=== PATIENT | male | born 1970 | race Caucasian/White ===

== ENCOUNTER 2016-07-22 14:07 | Emergency (ER) | payer BC ==
[2016-07-22] MEDS ORDERED: ONDANSETRON 4 MG/2 ML VIAL IVP ONE (14:24)
[2016-07-22] MEDS ORDERED: NS 1,000 ML IV ONE (14:26)
--- NOTE | 2016-07-22 14:26 | EDPHY ---
H & P Stated Complaint: ABBEY LOWER ABD PAIN Source: Patient Exam Limitations: No limitations - Personal History Current Tetanus Diphtheria and Acellular Pertussis (TDAP): Yes - Medical/Surgical History Other PMH: DIVERTICULITIS, LAST EPISODE 01/21 - Social History Smoking Status: Never smoked HPI/ROS: CHIEF COMPLAINT: Abdominal pain HISTORY OF PRESENT ILLNESS: Patient complains of 1 day history of bilateral lower quadrant abdominal pain. This started while riding his bike this morning. It is currently 9/10. Was milder this morning. He felt a sudden urge to have a bowel movement. He was unable to make it to the restroom and had a bowel movement outside. There was no blood in it. Pain has worsened throughout the day. It is associated with some distension. No fever or chills. No urinary complaints. No trauma or injury. Does have a history of diverticulitis x3 in the past. No perforations. No surgical interventions. Colonoscopy within the past 6 months without significant findings of the diverticula. No other associated complaints or modifying factors. PREVIOUS ABDOMINAL SURGERIES/DIAGNOSES: Diverticulitis recurrent without partial colectomy. No perforations REVIEW OF SYSTEMS: Ten systems reviewed and are negative unless otherwise noted in the HPI EXAMINATION: General Appearance: Alert, no distress Head: normocephalic, atraumatic Eyes: Pupils equal and round, no conjunctival pallor or injection ENT, Mouth: Mucous membranes moist. Uvula midline. Airway widely patent. Neck: Normal inspection, supple, non-tender Respiratory: Lungs are clear to auscultation. No wheezing, rhonchi or crackles. Cardiovascular: Regular rate and rhythm. No murmur. Pulses intact distally. Gastrointestinal: Abdomen is soft. There is moderate tenderness in both lower quadrants. Mild distention. No tympany. No rigidity. No guarding. No CVA tenderness. Nonacute abdomen. Back: non-tender, no bony abnormalities Neurological: GCS 15. A&O, nonfocal, normal gait Skin: Warm and dry, no rash Extremities: Nontender, no pedal edema Psychiatric: Mood and affect normal DIFFERENTIAL DIAGNOSES: Including but not limited to diverticulitis, colitis, perforated diverticulitis , peritoneal abscess, ureteral stones, nephrolithiasis, appendicitis, cystitis MDM: 2:25 p.m. Lower abdominal pain with mild distention and moderate tenderness. Given his history of diverticulitis I have ordered a CT scan of the abdomen and pelvis. His vital signs are stable. He does not meet SIRS criteria. IV fluid, IV pain medication and antiemetics have been ordered. 2:50 p.m. Notified by RN that the 1st dose of pain medication did not improve the patient' s symptoms. I have ordered 1 mg of Dilaudid. 3:30 p.m. Laboratory studies are all within normal limits. CT scan has been performed and I am awaiting the interpretation. 3:[address] Hernandez. [address] scan of the abdomen pelvis does reveal acute sigmoid diverticulitis. No perforation. No abscess. There is incidental note of renal and liver cysts of uncertain etiology. Recommends MR follow-up outpatient basis. 4:00 p.m. I have followed up with the patient regarding his findings. I informed her of the normal laboratory studies. I informed him of the uncomplicated diverticulitis. I offered admission for pain control and IV antibiotics. He has declined. He would like to be discharged home. I do feel that he is stable for discharge home and likely will do well on outpatient basis. We discussed the possibility of failure of outpatient therapy and he is comfortable seeing this risk. I will provide prescription for Levaquin, Flagyl , Zofran and Percocet for pain as needed. He is to return here for worsening pain, fever, chills, vomiting. He is to contact his primary care physician and GI physician next week for further care and for follow up on the renal and hepatic cysts., as well as general surgeon to discuss possible surgical evaluation of his recurrent diverticulitis. He is discharged home stable condition. ED Precautions: Worsening pain. Fever. Bloody stools. Bloody emesis. Constipation or diarrhea. SUPERVISION: Patient was evaluated in conjunction with the supervising physician. Please see their note for details. (Yovany Adame) Constitutional: Initial Vital Signs Temperature (C) 36.3 C 07/22/16 14:10 Heart Rate 73 07/22/16 14:10 Respiratory Rate 18 07/22/16 14:10 Blood Pressure 137/83 H 07/22/16 14:10 O2 Sat (%) 98 07/22/16 14:10 O2 Delivery Mode Room Air Allergies/Adverse Reactions: No Known Allergies Allergy (Unverified 07/22/16 14:08) Home Medications: Medication Instructions Recorded Ondansetron Odt [Zofran Odt 4 mg 4 mg PO Q6 PRN #12 tab 07/22/16 (*)] levOFLOXACIN [Levaquin] 500 mg PO DAILY #10 tablet 07/22/16 metroNIDAZOLE [Flagyl 500 mg (*)] 500 mg PO BID #30 tab 07/22/16 oxyCODONE HCL/ACETAMINOPHEN 1 each PO Q4-6PRN PRN #20 tablet 07/22/16 [Percocet 5-325 mg Tablet] Medical Decision Making - Diagnostics Imaging Results: Imaging Impressions Abdomen CT 07/22/16 14:26 Impression: 1. Sigmoid diverticulitis without evidence of abscess or perforation. 2. Indeterminate hypodensities in the liver and kidneys. If these have not been previously assessed on outside studies, recommend MR abdomen with contrast. 3. Additional findings as above. Findings discussed with Yovany Adame PA-C, 07/22/2016, at 1542 hours. Other Provider: I evaluated the patient independently. He presents to with abdominal pain from recurrent diverticulitis. His examination shows no evidence of peritonitis. I reviewed his CT and discussed the value of seeing a general surgeon given the fact he has now had diverticulitis x 4. He will be discharged to home with customary aftercare instructions. (Thiago Gipson) - Data Points Laboratory Results: Laboratory Results 07/22/16 14:20 07/22/16 14:20 07/22/16 07/22/16 14:20 14:20 WBC 6.85 10^3/uL 10^3/uL (3.80-9.50) RBC 4.99 10^6/uL 10^6/uL (4.40-6.38) Hgb 16.0 g/dL g/dL (13.7-17.5) Hct 45.4 % % (40.0-51.0) MCV 91.0 fL fL (81.5-99.8) MCH 32.1 pg pg (27.9-34.1) MCHC 35.2 g/dL g/dL (32.4-36.7) RDW 12.3 % % (11.5-15.2) Plt Count 180 10^3/uL 10^3/uL (150-400) MPV 10.1 fL fL (8.7-11.7) Neut % (Auto) 70.2 % % (39.3-74.2) Lymph % (Auto) 23.1 % % (15.0-45.0) [place] % (Auto) 6.0 % % (4.5-13.0) Eos % (Auto) 0.3 % L % (0.6-7.6) Baso % (Auto) 0.3 % % (0.3-1.7) Nucleat RBC Rel Count 0.0 % % (0.0-0.2) Absolute Neuts (auto) 4.81 10^3/uL 10^3/uL (1.70-6.50) Absolute Lymphs (auto) 1.58 10^3/uL 10^3/uL (1.00-3.00) Absolute Monos (auto) 0.41 10^3/uL 10^3/uL (0.30-0.80) Absolute Eos (auto) 0.02 10^3/uL L 10^3/uL (0.03-0.40) Absolute Basos (auto) 0.02 10^3/uL 10^3/uL (0.02-0.10) Absolute Nucleated RBC 0.00 10^3/uL 10^3/uL (0-0.01) Immature Gran % 0.1 % % (0.0-1.1) Immature Gran # 0.01 10^3/uL 10^3/uL (0.00-0.10) Sodium 138 mEq/L mEq/L (134-144) Potassium 4.1 mEq/L mEq/L (3.5-5.2) Chloride 104 mEq/L mEq/L (97-110) Carbon Dioxide 25 mEq/l mEq/l (22-31) Anion Gap 9 mEq/L mEq/L (8-16) BUN 13 mg/dL mg/dL (7-23) Creatinine 1.1 mg/dL mg/dL (0.7-1.3) Estimated GFR > 60 Glucose 97 mg/dL mg/dL (70-100) Calcium 9.8 mg/dL mg/dL (8.5-10.4) Total Bilirubin 0.6 mg/dL mg/dL (0.1-1.4) Conjugated Bilirubin 0.0 mg/dL mg/dL (0.0-0.5) Unconjugated Bilirubin 0.6 mg/dL mg/dL (0.0-1.1) AST 30 IU/L IU/L (17-59) ALT 41 IU/L IU/L (21-72) Alkaline Phosphatase 50 IU/L IU/L (38-126) Total Protein 7.5 g/dL g/dL (6.3-8.2) Albumin 4.2 g/dL g/dL (3.5-5.0) Lipase 94.0 IU/L IU/L (23-300) Medications Given: Discontinued Medications Hydromorphone HCl (Dilaudid) 1 mg IVP EDNOW ONE Stop: 07/22/16 14:50 Last Admin: 07/22/16 14:53 Dose: 1 mg Sodium Chloride (Ns) 1,000 mls @ 0 mls/hr IV ONCE ONE; Wide Open PRN Reason: Protocol Stop: 07/22/16 14:27 Last Admin: 07/22/16 14:35 Dose: 1,000 mls Morphine Sulfate (Morphine) 6 mg IVP EDNOW ONE Stop: 07/22/16 14:24 Last Admin: 07/22/16 14:34 Dose: 6 mg Ondansetron HCl (Zofran) 4 mg IVP EDNOW ONE Stop: 07/22/16 14:25 Last Admin: 07/22/16 14:35 Dose: 4 mg Departure - Departure Disposition: Home, Routine, Self-Care Clinical Impression: Sigmoid diverticulitis, Renal cyst, Hepatic cyst Condition: Good Instructions: Diverticulitis (ED), Kidney Cyst (ED) Additional Instructions: 1. Medications as prescribed 2. Contact primary care physician for further care 3. Contact GI physician for further care 4. Contact general surgeon for evaluation of surgical intervention 5. Return here for worsening pain, fever, chills, nausea vomiting, diarrhea or bloody stools Referrals: Elidia Berkowitz [Primary Care Provider] - As per Instructions Shaun Rodgers MD [Medical Doctor] - As per Instructions Prescriptions: levOFLOXACIN [Levaquin] 500 mg PO DAILY #10 tablet metroNIDAZOLE [Flagyl 500 mg (*)] 500 mg PO BID #30 tab Ondansetron Odt [Zofran Odt 4 mg (*)] 4 mg PO Q6 PRN #12 tab PRN Reason: Nausea/Vomiting, Use 1st oxyCODONE HCL/ACETAMINOPHEN [Percocet 5-325 mg Tablet] 1 each PO Q4-6PRN PRN # 20 tablet PRN Reason: Pain, Breakthrough
[2016-07-22 14:31] LABS: % IMMATURE GRANULYOCYTES 0.1 % (0.0-1.1); ABSOLUTE IMMATURE GRANULOCYTES 0.01 10^3/uL (0.00-0.10); ADD DIFF? NO; ADD MORPH? NO; ADD SCAN? NO; ATYPICAL LYMPHOCYTE FLAG 0 (0-99); FRAGMENT RBC FLAG 0 (0-99); HEMATOCRIT 45.4 % (40.0-51.0); LEFT SHIFT FLG 10 (0-99); LIPEMIA HEMOLYSIS FLAG 90 (0-99); MEAN CELL HEMOGLOBIN 32.1 pg (27.9-34.1); MEAN CELL HEMOGLOBIN CONCENTR. 35.2 g/dL (32.4-36.7); MEAN PLATELET VOLUME 10.1 fL (8.7-11.7); PLATELET CLUMPS FLAG 0 (0-99); PLATELET COUNT 180 10^3/uL (150-400); RED BLOOD CELL COUNT 4.99 10^6/uL (4.40-6.38); RED CELL DISTRIBUTION WIDTH 12.3 % (11.5-15.2)
[2016-07-22 14:44] LABS: ALANINE AMINOTRANSFERASE 41 IU/L (21-72); ALBUMIN 4.2 g/dL (3.5-5.0); ALKALINE PHOSPHATASE 50 IU/L (38-126); ANION GAP 9 mEq/L (8-16); ASPARTATE AMINOTRANSFERASE 30 IU/L (17-59); BILIRUBIN,TOTAL 0.6 mg/dL (0.1-1.4); BILIRUBIN-UNCONJUGATED 0.6 mg/dL (0.0-1.1); CALCIUM 9.8 mg/dL (8.5-10.4); CARBON DIOXIDE 25 mEq/l (22-31); CHLORIDE 104 mEq/L (97-110); CREATININE 1.1 mg/dL (0.7-1.3); GLOMERULAR FILTRATION RATE > 60; GLUCOSE 97 mg/dL (70-100); POTASSIUM 4.1 mEq/L (3.5-5.2); SODIUM 138 mEq/L (134-144); TOTAL PROTEIN 7.5 g/dL (6.3-8.2)
[2016-07-22] MEDS ORDERED: HYDROmorphONE/DILAUDID 1 MG/ML SYR IVP ONE (14:49)
[2016-07-22] MEDS ORDERED: IOPAMIDOL (ISOVUE-300) 100 ML BTL ONE (14:57)
[2016-07-22 16:08] VITALS: BP 107/66; PULSE 82; RESP 16; TEMP 99.1; O2SAT 93
== END 2016-07-22 16:38 | disposition home or self-care (01) ==
DX: K57.32 Diverticulitis of large intestine without perforation or abscess without bleeding (principal); N28.1 Cyst of kidney, acquired; K76.89 Other specified diseases of liver
CPT/HCPCS: 96374; J1170; J2405; Q9967